=== PATIENT | male | born 1975 | race Caucasian/White ===

== ENCOUNTER 2019-11-08 18:57 | Inpatient (IN) | payer OTHER ==
[~2019-11-08] VITALS: Ht 172.7 cm; Wt 78.5 kg
[~2019-11-08 18:57] MED LIST: AMIT10TA6 PO
[2019-11-08] MEDS ORDERED: ONDANSETRON HCL/PF 4 MG/2 ML VIAL ONE (19:13)
[2019-11-08] MEDS ORDERED: LORAZEPAM INJ 2 MG/ML VIAL ONE ×2 (19:13→20:42)
[2019-11-08 19:23] LABS: BASOPHILS % (AUTO) 0.1 % (0.0-2.0); EOSINOPHILS % (AUTO) 0.1 % (0.0-6.0); HEMATOCRIT 42 % (39-51); HEMOGLOBIN 14.4 g/dL (13.5-17.5); LYMPHOCYTES # (AUTO) 0.9 /CMM (0.8-4.8); LYMPHOCYTES % (AUTO) 5.4 % (20.0-44.0); MEAN CORPUSCULAR HGB CONC 35 g/dl (31.0-36.0); MEAN CORPUSCULAR VOLUME 94 fL (80-96); MONOCYTES # (AUTO) 1.4 /CMM (0.1-1.30); MONOCYTES % (AUTO) 8.2 % (2.0-12.0); NEUTROPHILS # (AUTO) 14.4 /CMM (1.8-8.9); NEUTROPHILS % (AUTO) 86.2 % (43.0-81.0); PLATELET COUNT (AUTO) 86 /CMM (150-450); RED BLOOD CELL COUNT(AUTO) 4.42 MIL/uL (4.5-6.0); WHITE BLOOD COUNT (AUTO) 16.7 K/uL (4.3-11.0)
[2019-11-08] MEDS ORDERED: IV NS 0.9% 1,000 ML BAG IV ONE ×2 (19:30→21:00)
[2019-11-08] MEDS ORDERED: LORAZEPAM INJ 2 MG/ML VIAL IV ONE ×4 (19:30→21:30)
[2019-11-08] MEDS ORDERED: ONDANSETRON HCL/PF 4 MG/2 ML VIAL IVP ONE (19:30)
--- NOTE | 2019-11-08 19:34 | NUR ---
[id number] FRM OUTSIDE [facility], ANXIOUS C/O FEELING UNWELL, NAUSEA. PT AAOX3, VSS. RR EVEN & UNLABORED. DENIES CP, SOB, DIZZINESS, WEAKNESS AT THIS TIME. PT SEEN & EVAL'D BY DR. ENRIQUEZ. MEDICATED ORDERED, PT LIBRADO WELL. PT TO CT VIA [employer]. WILL CONT TO MONITOR.
[2019-11-08 19:36] LABS: SODIUM SERUM 121 mmol/L (136-145)
[2019-11-08 19:37] LABS: BILIRUBIN,DIRECT 0.5 mg/dL (0.0-0.2); BILIRUBIN,TOTAL 1.5 mg/dL (0.2-1.0); CALCIUM, SERUM 9.2 mg/dL (8.5-10.1); CARBON DIOXIDE 32 mmol/L (21-32); CREATININE 0.9 mg/dL (0.6-1.3); GLUCOSE 135 mg/dL (74-106); UREA NITROGEN, BLOOD 18 mg/dL (7-18)
[2019-11-08 19:38] LABS: ACETAMINOPHEN < 2 ug/ml (10-30); ALANINE AMINOTRANSFERASE 168 U/L (12-78); ALBUMIN 3.6 g/dL (3.4-5.0); ALCOHOL, BLOOD < 3 mg/dL (0-0); ALKALINE PHOSPHATASE 81 U/L (46-116); ASPARTATE AMINOTRANSFERASE 126 U/L (15-37); SALICYLATE < 0.2 mg/dL (2.8-20.0); TOTAL PROTEIN, SERUM 6.8 g/dL (6.4-8.2)
[2019-11-08 19:40] LABS: CHLORIDE 80 mmol/L (98-107); POTASSIUM 2.5 mmol/L (3.5-5.1)
[2019-11-08] MEDS ORDERED: POTASSIUM CHLORIDE 20 MEQ TAB.PRT.SR PO ONE ×2 (20:00→20:02)
[2019-11-08 20:08] LABS: APPEARANCE,URINE Clear (CLEAR); BILIRUBIN,URINE Negative (NEGATIVE); BLOOD, URINE Negative Ery/uL (NEGATIVE); COLOR,URINE Yellow (YELLOW); KETONES,URINE Negative (NEGATIVE); LEUKOCYTE ESTERASE ,URINE Negative (NEGATIVE); NITRITE, URINE Negative (NEGATIVE); PH,URINE 6.5 (5.0-8.0); PROTEIN,URINE Negative (NEGATIVE); UGLUCOSE Negative (NEGATIVE)
--- NOTE | 2019-11-08 20:12 | NUR ---
MEDICATED PER ERMD ORDER, PT LIBRADO WELL. PT STABLE, WATCHING TV, NAD NOTED AT THIS TIME. WILL CONT TO MONITOR.
--- NOTE | 2019-11-08 20:25 | NUR ---
Note leia in ED - 11/08/19 at 2240 by BEATRIZ INCREASED DIPRIVAN DRIP TO 50 MCG. PT STILL AGITATED. WILL CONT TO MONITOR.
--- NOTE | 2019-11-08 20:34 | NUR ---
PER ADMIN, TELEPHONE SOLICITOR WAS CALLED AT 2006
[2019-11-08 20:35] LABS: BAND % (MANUAL) 2 % (0.0-5.0); LYMPHOCYTES % (MANUAL) 5 % (16-48); MONOCYTES % (MANUAL) 7 % (0-11.0); NEUTROPHILS % (MANUAL) 86 (42-76)
[2019-11-08 20:36] LABS: CREATINE KINASE, TOTAL 1479 U/L (39-308)
[2019-11-08] MEDS ORDERED: ZOLPIDEM TARTRATE 5 MG TABLET PO PRN (21:00)
[2019-11-08] MEDS ORDERED: ONDANSETRON HCL/PF 4 MG/2 ML VIAL IVP PRN (21:00)
--- NOTE | 2019-11-08 21:10 | NUR ---
PT BECAME HYPERVERBAL, SPEAKING TO HIMSELF, SWEATING PROFUSELY. AAOX2, MEDICATED W/ 2 MG OF ATIVAN IVP PER ERMD ORDER. WILL CONT TO MONITOR FOR POSS ALCOHOL WITHDRAWAL. SITTER AT BS.
[2019-11-08] MEDS ORDERED: KETAMINE HCL (500MG/10ML) 50 MG/ML VIAL ONE (21:36)
--- NOTE | 2019-11-08 21:44 | NUR ---
PT BECOMING MORE RESTLESS, PULLING IV & ACCOUNTS MANAGER WIRES. MEDICATED PER ERMD ORDERS.
[2019-11-08] MEDS ORDERED: PROPOFOL 100 ML ONE (21:57)
[2019-11-08] MEDS ORDERED: SUCCINYLCHOLINE CHLORIDE 20 MG/ML VIAL IV ONE (22:00)
[2019-11-08] MEDS ORDERED: ETOMIDATE 2 MG/ML VIAL IV ONE (22:00)
[2019-11-08] MEDS ORDERED: KETAMINE HCL (500MG/10ML) 50 MG/ML VIAL IV ONE (22:00)
--- NOTE | 2019-11-08 22:00 | NUR ---
LACTIC 2.1
[2019-11-08] MEDS: PROPOFOL 100 ML IV PRN ×4 (22:02→22:20)
[2019-11-08] MEDS ORDERED: MIDAZOLAM 50 MG/10 ML VIAL ONE (22:06)
[2019-11-08] MEDS: MIDAZOLAM HCL 100 MG in IV NS 0.9% 80 ML IV PRN ×2 (22:10→22:40)
--- NOTE | 2019-11-08 22:25 | NUR ---
INCREASED DIPRIVAN DRIP TO 50 MCG. PT STILL AGITATED. WILL CONT TO MONITOR.
--- NOTE | 2019-11-08 22:26 | NUR ---
RT NOTE Pt rec'd on NRB mask @ 15LPM. Pt agitated and showed signs and symptoms of resp distress. Pt orally intubated via ETT sz #7.5 secured @ 24CM at the lipline. colormetric CO2 color changed confirmed. Clear breath sounds heard bilaterally. Xray taken and confirmed placement of tube bedside. Pt placed on [facility] vent on AC mode settings as charted. Alarms are set and audible. Pt sx'd for thick mod amt of pale yellow secretions. Vent plugged into red outlet. Ambu bag bedside. Will continue to monitor closely. Addendum: 11/08/19 at 2230 by RIKKI ALANIS RT Amended: Links added.
--- NOTE | 2019-11-08 22:45 | NUR ---
DECREASED DIPRIVAN TO 40 MCG/KG/MIN. PT FULLY SEDATED. WILL CONT TO MONITOR.
--- NOTE | 2019-11-08 23:07 | NUR ---
REPORT GIVEN TO JARON GLEASON FOR VERO.
--- NOTE | 2019-11-08 23:50 | NUR ---
"TOBACCO CUTTER NOTE | ADMISSION RECEIVED PT FROM ER VIA GURNEY ACCOMPANIED BY 2 RNS AND TRANSFERRED TO BED VIA 2 PERSON ASSIST. PATIENT IS SEDATED; ORALLY INTUBATED WITH ETT 7.5 AND 24CM AT LIPLINE,ON MECHANICAL VENT; SETTINGS PRESCRIBED AC 18 TV 500 FIO2 60% AND PEEP OF5. PATIENT IN NO S/SX OF ACUTE DISTRESS AT THIS TIME. NO SOB NOTED. PATIENT ON TELE MONITORING READING SINUS RHYTHM HR IS @90s. NOTED IV SITE ON R AC #18 AND L AC #20 RECEIVED WITH PROPOFOL 40MCG/KG/MIN AND VERSED AT 2MG/KG/MIN ; BOTH PATENT IN INTACT,NO S/S OF INFECTION OR INFILTRATION. BILATERAL SOFT WRIST RESTRAINTS IN PLACE, ASSESSED PER PROTOCOL. RAMOS CATH IN PLACE, MINIMAL URINE OUTPUT NOTED SAFETY MEASURES HAVE BEEN PROVIDED AND IMPLEMENTED. PATIENT BED ALARM IS ON. HEAD OF BED ELEVATED. BED IS LOCKED, IN LOWEST POSITION AND SIDE RAILS UP. CALL LIGHT WITHIN REACH OF THE PATIENT. WILL CONTINUE TO MONITOR AND REASSESS FOR ANY CHANGES."
[2019-11-09] VITALS (48 sets, daily range): BP systolic 96–154; BP diastolic 63–93
[2019-11-09 00:18] LABS: CALCIUM, SERUM 8.8 mg/dL (8.5-10.1); CREATININE 0.7 mg/dL (0.6-1.3)
[2019-11-09 00:24] LABS: POTASSIUM 2.7 mmol/L (3.5-5.1)
--- NOTE | 2019-11-09 01:00 | NUR ---
RN NOTES RECEIVED A CALL FROM [facility] REPORTED CRITICAL VALUE OF POTASSIUM 2.7 SHARAN JOYA, MADE AWARE AWAITING FOR THE ORDER.
--- NOTE | 2019-11-09 01:14 | NUR ---
RN/ICU-SPOKE TO REPTILE FARMER LIZBETH,TEL. NO [phone]. BY PHONE, WHO CLAIMS THAT HE IS THE PT. ROOM MATE AND DOMESTIC PARTNER AND THAT HE IS THE RESPONSIBLE PERSON FOR PT. PARENTS ARE IN [place] AND THAT THE PARTNER WILL NOTIFY PARENTS IN AM. SAME PERSON WILL GENERAL MILLING SUPERINTENDENT BELONGINGS FROM [facility] TOMORROW.
[2019-11-09] MEDS ORDERED: CEFTRIAXONE 1 G VIAL ONE (01:29)
[2019-11-09] MEDS: CEFTRIAXONE 1 G in IV D5W 50 ML IV SCH (01:33)
[2019-11-09] MEDS: PANTOPRAZOLE 40 MG VIAL IV SCH ×2 (01:33→21:26)
[2019-11-09] MEDS: IV NS 0.9% 1,000 ML IV PRN ×4 (01:34→23:53)
[2019-11-09] MEDS ORDERED: POTASSIUM CL. PREMIX PERIPHER. 200 ML ONE (02:36)
[2019-11-09 05:07] LABS: BILIRUBIN,DIRECT 0.3 mg/dL (0.0-0.2); BILIRUBIN,TOTAL 0.7 mg/dL (0.2-1.0); CALCIUM, SERUM 8.5 mg/dL (8.5-10.1); CREATININE 0.7 mg/dL (0.6-1.3); MAGNESIUM 2.4 mg/dL (1.8-2.4); PHOSPHORUS 4.6 mg/dL (2.5-4.9)
[2019-11-09 05:07] LABS: ABG BASE EXCESS 5.3 mmol/L; ABG OXYGEN SATURATION 97.6 % (92.0-98.5); ABG PCO2 43.3 mmHg (35.0-45.0); ABG PH 7.456 (7.350-7.450); ABG PO2 131.7 mmHg (75.0-100.0); AaDO2 248.5 mmHg; MetHb 0.5 % (0.0-1.5); O2Hb 97.1 % (94.0-97.0); SITE, ABG Right Radial; VENT MODE, BG AC 18 500 60% +5
[2019-11-09 05:14] LABS: BASOPHILS % (AUTO) 0.1 % (0.0-2.0); EOSINOPHILS % (AUTO) 0.7 % (0.0-6.0); HEMATOCRIT 41 % (39-51); LYMPHOCYTES # (AUTO) 2.3 /CMM (0.8-4.8); LYMPHOCYTES % (AUTO) 19.3 % (20.0-44.0); MEAN CORPUSCULAR HGB CONC 34 g/dl (31.0-36.0); MEAN CORPUSCULAR VOLUME 97 fL (80-96); MONOCYTES # (AUTO) 1.4 /CMM (0.1-1.30); MONOCYTES % (AUTO) 11.5 % (2.0-12.0); NEUTROPHILS # (AUTO) 8.1 /CMM (1.8-8.9); NEUTROPHILS % (AUTO) 68.4 % (43.0-81.0); PLATELET COUNT (AUTO) 74 /CMM (150-450); RED BLOOD CELL COUNT(AUTO) 4.27 MIL/uL (4.5-6.0); WHITE BLOOD COUNT (AUTO) 11.8 K/uL (4.3-11.0)
[2019-11-09 05:29] LABS: POTASSIUM 2.8 mmol/L (3.5-5.1)
[2019-11-09 05:48] LABS: NEUTROPHILS % (MANUAL) 80 (42-76)
[2019-11-09 05:49] LABS: LYMPHOCYTES % (MANUAL) 15 % (16-48); MONOCYTES % (MANUAL) 5 % (0-11.0)
--- NOTE | 2019-11-09 07:38 | NUR ---
RN CLOSING NOTE: PATIENT REMAINS IN ROOM. NO SIGNS OF RESPIRATORY DISTRESS. CONTINUE PROPOFOL AT 40MCG/KG/MIN. PT REMAINS SEDATED NO SIGNIFICANT CHANGES IN CONDITION. ETT AND VENT SETTINGS TOLERATED WELL. BSR KEPT IN PLACED PER PROTOCOL. RAMOS CATH DRAINING WELL. WASTED VERSED OF 32.5ML WITNESSED BY JARON ALVAREZ. ENDORSED TO INCOMING AM NURSE TO CONTINUE WITH POC.
[2019-11-09] MEDS ORDERED: PHARMACY ADD 1 AMP MVI TO IVF DAILY ONE BAG XX PRN (08:00)
--- NOTE | 2019-11-09 08:00 | NUR ---
received pt from shift mechanic, s/p OD, sedated on Diprivan at 40mcg, SR, intubated, sat well, NPO, f/c good output, v/s stable, no pain, pt turned and repositioned.
[2019-11-09] MEDS: LORAZEPAM INJ 2 MG/ML VIAL IV PRN ×2 (08:06→16:03)
[2019-11-09] MEDS: POTASSIUM CL. PREMIX PERIPHER. 50 ML IV SCH ×8 (08:11→15:47)
[2019-11-09] MEDS: PROPOFOL 100 ML IV PRN ×5 (08:12→22:33)
[2019-11-09] MEDS: Thiamine 100 MG in IV D5W 50 ML IV SCH (09:28)
[2019-11-09] MEDS: Folic acid 1 MG in IV D5W 50 ML IV SCH (09:29)
[2019-11-09] MEDS: MVI ADULT 10ML VIAL = 1AMP 10 ML in IV NS 0.9% 1,000 ML IV PRN (09:30)
--- NOTE | 2019-11-09 16:20 | NUR ---
pt is resting in the bed, sedated on Diprivan at 60mcg, SR, sat well, good urine output, v/s stable, no pain, pt cleaned, changed and repositioned.
--- NOTE | 2019-11-09 19:20 | NUR ---
RN NOTES RECEIVED PT ORALLY INTUBATED WITH ETT 7.5 AND 24CM AT LIPLINE,ON MECHANICAL VENT; SETTINGS PRESCRIBED AC 18 TV 500 FIO2 60% AND PEEP OF 5. NO S/SX OF ACUTE DISTRESS AT THIS TIME. NO SOB NOTED. PATIENT ON TELE MONITORING SINUS RHYTHM . IV SITE ON R AC #18 AND L AC #18 RUNNING WITH PROPOFOL 60 MCG/KG/MIN AND IVF NS @ 125 ML/HR PATENT IN INTACT,NO S/S OF INFECTION OR INFILTRATION. BILATERAL SOFT WRIST RESTRAINTS KEPT IN PLACE, RAMOS CATH DRAINED VIA GRAVITY BED IS LOCKED, IN LOWEST POSITION AND SIDE RAILS UP. BED ALARM ON. WILL CONTINUE TO MONITOR.
[2019-11-09] MEDS: AMITRIPTYLINE HCL 10 MG TABLET PO SCH (21:30)
[2019-11-10] VITALS (42 sets, daily range): BP systolic 107–171; BP diastolic 55–94
[2019-11-10] MEDS ORDERED: CEFTRIAXONE 1 G VIAL ONE (02:34)
[2019-11-10] MEDS: CEFTRIAXONE 1 G in IV D5W 50 ML IV SCH (02:35)
[2019-11-10] MEDS: LORAZEPAM INJ 2 MG/ML VIAL IV PRN ×2 (04:41→10:54)
[2019-11-10 05:23] LABS: BASOPHILS % (AUTO) 0.3 % (0.0-2.0); EOSINOPHILS % (AUTO) 1.5 % (0.0-6.0); HEMATOCRIT 37 % (39-51); HEMOGLOBIN 12.9 g/dL (13.5-17.5); LYMPHOCYTES # (AUTO) 1.8 /CMM (0.8-4.8); LYMPHOCYTES % (AUTO) 18.7 % (20.0-44.0); MEAN CORPUSCULAR HGB CONC 35 g/dl (31.0-36.0); MEAN CORPUSCULAR VOLUME 98 fL (80-96); MONOCYTES # (AUTO) 1.4 /CMM (0.1-1.30); MONOCYTES % (AUTO) 14.1 % (2.0-12.0); NEUTROPHILS # (AUTO) 6.3 /CMM (1.8-8.9); NEUTROPHILS % (AUTO) 65.4 % (43.0-81.0); PLATELET COUNT (AUTO) 85 /CMM (150-450); RED BLOOD CELL COUNT(AUTO) 3.79 MIL/uL (4.5-6.0); WHITE BLOOD COUNT (AUTO) 9.7 K/uL (4.3-11.0)
--- NOTE | 2019-11-10 05:30 | NUR ---
RN NOTES RECEIVE A CALL [facility] CREATININE KINASE 17.1 DNP MADE AWARE.
[2019-11-10 05:36] LABS: CALCIUM, SERUM 7.7 mg/dL (8.5-10.1); CREATININE 0.6 mg/dL (0.6-1.3); PHOSPHORUS 3.1 mg/dL (2.5-4.9); POTASSIUM 3.5 mmol/L (3.5-5.1)
[2019-11-10 06:19] LABS: LYMPHOCYTES % (MANUAL) 16 % (16-48); NEUTROPHILS % (MANUAL) 75 (42-76)
[2019-11-10 06:20] LABS: MONOCYTES % (MANUAL) 9 % (0-11.0)
--- NOTE | 2019-11-10 07:13 | NUR ---
RN NOTES PATIENT REMAINED SEDATED WITH DIPRIVAN ATIVAN GIVEN PRN. TOLERATED WELL. AFEBRILE. ETT AND VENT SETTING TOLERATED WELL. VSS. IV SITE ON RAC AND LAC INTACT AND PATENT PROPOFOL TITRATED ORDERED PROTOCOL AND IVF ONGOING ORDERED. WILFRID. SOFT WRIST RESTRAINT KEPT IN PLACED. F/C DRAINED WITH LIGHT GREENISH COLOR WTIH GOOD URINE OUTPUT. PATIENT AZALIA HAVE WEANING TRIAL TODAY ENDORSED CONTINUITY OF CARE TO AM NURSE.
[2019-11-10] MEDS: PROPOFOL 100 ML IV PRN ×2 (08:17→11:23)
--- NOTE | 2019-11-10 09:04 | NUR ---
received pt form night order selector, sedated on Diprivan at 60mcg, SR, intubated, sat well, NPO, f/c good output, v/s stable, no pain, pt turned and repositioned.
--- NOTE | 2019-11-10 09:10 | NUR ---
RT NOTE PER DR. GOODMAN WEANING HELD UNTIL COVID RESULTS COME BACK
[2019-11-10] MEDS: MVI ADULT 10ML VIAL = 1AMP 10 ML in IV NS 0.9% 1,000 ML IV PRN (09:35)
[2019-11-10] MEDS: Folic acid 1 MG in IV D5W 50 ML IV SCH (09:35)
[2019-11-10] MEDS: Thiamine 100 MG in IV D5W 50 ML IV SCH (09:35)
[2019-11-10] MEDS ORDERED: DC PROPOFOL WHEN EXTUBATED XX PRN (10:00)
--- NOTE | 2019-11-10 12:29 | NUR ---
PATIENT EXTUBATED PER DOCTOR PELEG. PATIENT TOLERATED WELL. PATIENT PLACED ON 3L OXYGEN VIA NASAL CANNULA, SATURATING WELL AT 98-100%, BREATHING EVEN AND UNLABORED. NO ACUTE DISTRESS NOTED.
--- NOTE | 2019-11-10 18:11 | NUR ---
PATIENT IN BED. NO ACUTE DISTRESS NOTED. PATIENT ALERT & ORIENTED X2-3, WITH PERIODS OF CONFUSION. PATIENT ON 3L OXYGEN VIA NASAL CANNULA, SATURATING WELL AT 97%. PATIENT ON INSPECTOR FABRIC, SINUS RHYTHM NOTED WITH HEART RATE IN 70S. PATIENT RIGHT ANTECUBITAL AND LEFT ANTECUBITAL IV ACCESS INTACT, PATENT, FLUSHED WELL. PATIENT RAMOS CATHETER IN PLACE, INTACT, DRAINING TO GRAVITY. PATIENT SAFETY MAINTAINED. CALL LIGHT WITHIN REACH. WILL ENDORSE PLAN OF CARE TO ONCOMING NURSE FOR CONTINUITY OF CARE.
--- NOTE | 2019-11-10 19:45 | NUR ---
ICU/STEM SIZER REPORT RECEIVED FROM THE TO DAY NURSE. SEE FLOWSHEET FOR ASSESSMENT, SKIN ISSUES ARE ADDRESSED ON FLOWSHEET ALONG WITH INTERVENTION TO EACH. PT APPEARS TO BE LETHARGIC. PT IS ON 3 LITERS N/C WITH SATURATION AT 97S%. WILL MONITOR THIS PT AND HIS SATURATION. PT TURNS SELF AND REPOSITIONS SELF WELL FOR COMFORT AND CARE. NO ACUTE DISTRESS SEEN AT THIS TIME, WILL CONTINUE TO MONITOR THIS PT.
--- NOTE | 2019-11-10 20:03 | NUR ---
RT NOTE FOUND PT ALERT AND ORIENTED ON RA SPO2 97-98% HR 73/88 RR 20/22. NO S/S OF RESPIRATORY DISTRESS. WILL CONTINUE TO MONITOR T/O SHIFT.
[2019-11-10] MEDS: PANTOPRAZOLE 40 MG VIAL IV SCH (21:26)
[2019-11-10] MEDS: AMITRIPTYLINE HCL 10 MG TABLET PO SCH (21:27)
--- NOTE | 2019-11-10 22:10 | NUR ---
ICU/JAVASCRIPT PROGRAMMER PT REFUSED PM CARE. PT REMAINS WITH SATURATION AT 97%. PT TURNS SELF AND REPOSITIONS SELF FOR COMFORT AND CARE. WILL CONTINUE TO MONITOR THIS PT
[2019-11-11] VITALS (8 sets, daily range): BP systolic 132–165; BP diastolic 81–100
[2019-11-11] MEDS: CEFTRIAXONE 1 G in IV D5W 50 ML IV SCH (01:43)
--- NOTE | 2019-11-11 03:00 | NUR ---
ICU/FOREST ECONOMIST PT REFUSED AM CARE. PT REMAINS WITH SATURATION AT 97%. PT TURNS SELF AND REPOSITIONS SELF FOR COMFORT AND CARE. WILL CONTINUE TO MONITOR THIS PT
[2019-11-11 05:10] LABS: BASOPHILS % (AUTO) 0.3 % (0.0-2.0); EOSINOPHILS % (AUTO) 0.4 % (0.0-6.0); HEMATOCRIT 43 % (39-51); HEMOGLOBIN 14.6 g/dL (13.5-17.5); LYMPHOCYTES # (AUTO) 1.2 /CMM (0.8-4.8); LYMPHOCYTES % (AUTO) 15.3 % (20.0-44.0); MEAN CORPUSCULAR HGB CONC 34 g/dl (31.0-36.0); MEAN CORPUSCULAR VOLUME 98 fL (80-96); MONOCYTES # (AUTO) 1.1 /CMM (0.1-1.30); MONOCYTES % (AUTO) 14.6 % (2.0-12.0); NEUTROPHILS # (AUTO) 5.3 /CMM (1.8-8.9); NEUTROPHILS % (AUTO) 69.4 % (43.0-81.0); PLATELET COUNT (AUTO) 138 /CMM (150-450); RED BLOOD CELL COUNT(AUTO) 4.43 MIL/uL (4.5-6.0); WHITE BLOOD COUNT (AUTO) 7.6 K/uL (4.3-11.0)
[2019-11-11 05:28] LABS: CALCIUM, SERUM 8.3 mg/dL (8.5-10.1); CREATININE 0.7 mg/dL (0.6-1.3); MAGNESIUM 2.1 mg/dL (1.8-2.4); PHOSPHORUS 2.5 mg/dL (2.5-4.9); POTASSIUM 3.2 mmol/L (3.5-5.1)
--- NOTE | 2019-11-11 05:30 | NUR ---
ICU/VIRTUAL CLASSROOM MANAGER AM LABS WERE DONE, AWAIT FOR ANY RESULTS.
[2019-11-11] MEDS ORDERED: POTASSIUM CHLORIDE 20 MEQ TAB.PRT.SR PO ONE (08:00)
[2019-11-11] MEDS: Thiamine 100 MG in IV D5W 50 ML IV SCH (08:00)
[2019-11-11] MEDS: Folic acid 1 MG in IV D5W 50 ML IV SCH (08:00)
--- NOTE | 2019-11-11 08:14 | NUR ---
PT WANTS TO LEAVE AMA. AMA FORMED SIGNED BY PATIENT AND BY DR. SÁNHCEZ. DR. YOUSIF ORDERED 40MEQ OF POTASSIUM PRIOR TO PATIENT LEAVING AMA. RIGHT AC IV SITE AND LEFT AC SITE REMOVED WITHOUT DIFFICULTY, BOTH CATH TIPS INTACT. RAMOS CATHETER REMOVED WITHOUT DIFFICULTY. DR. CHRISTENSEN IN ICU, NOTIFIED. PT IS CURRENTLY WAITING TILL HIS PHONE CHARGES A LITTLE SO HE CAN CALLED AN UBER OR LYFT. PT APPEARS OX4, A LITTLE SHAKY BUT STEADY ON FEET.
[2019-11-11] MEDS ORDERED: POTASSIUM CHLORIDE 20 MEQ TAB.PRT.SR PO STA (08:36)
--- NOTE | 2019-11-11 08:59 | NUR ---
PT'S HOME MED ESCITALOPRAM 5MG TABS IS IN PHARMACY. PT REFUSED TO HAVE MED SENT FROM PHARMACY FOR HIM TO TAKE HOME. PT STATES THE MED GIVES HIM SIDE EFFECTS. RN WILL NOTIFIED PHARMACY. Addendum: 11/11/19 at 0914 by PAN CAMARENA RN RN RECEIVED MEDICATION FROM PHARMACY AND HANDED IT TO PATIENT PATIENT WAS LEAVING.
--- NOTE | 2019-11-11 09:14 | NUR ---
PT LEFT AMA AT THIS TIME. PT CALLED AN UBER, RN WALKED PT TO LOBBY.
--- NOTE | 2019-11-11 09:17 | NUR ---
WHEN PATIENT LEFT AMA PT TOOK ALL PERSONAL BELONGINGS WITH HIM, INCLUDING CLOTHES, SHOES, WALLET AND CELL PHONE AND ALL OVER PERSONAL BELONGINGS.
== END 2019-11-11 09:20 | disposition left against medical advice (07) | DRG 133 ==
LOC: ER 19:02 → TELE 21:27 → ICU 22:08
PROVIDERS: ADMIT Nurse Practitioner Acute Care; ATTEND Family Medicine
PROC: 0BH17EZ Insertion of Endotracheal Airway into Trachea, Via Natural or Artificial Opening (ICD-10-PCS; principal; 2019-11-08)
PROC: 5A1945Z Respiratory Ventilation, 24-96 Consecutive Hours (ICD-10-PCS; principal; 2019-11-08)
DX: J96.00 Acute respiratory failure, unspecified whether with hypoxia or hypercapnia (principal); F10.229 Alcohol dependence with intoxication, unspecified; E87.6 Hypokalemia; E87.1 Hypo-osmolality and hyponatremia; E86.0 Dehydration; F10.239 Alcohol dependence with withdrawal, unspecified; R56.9 Unspecified convulsions; M62.82 Rhabdomyolysis; Z96.641 Presence of right artificial hip joint; Z79.899 Other long term (current) drug therapy; G92 Toxic encephalopathy; F32.9 Major depressive disorder, single episode, unspecified; J98.11 Atelectasis; D69.6 Thrombocytopenia, unspecified; Z86.73 Personal history of transient ischemic attack (TIA), and cerebral infarction without residual deficits; E87.2 Acidosis; E86.1 Hypovolemia; Y90.0 Blood alcohol level of less than 20 mg/100 ml; E86.9 Volume depletion, unspecified
CPT/HCPCS: 31720; 36415; 36600; 70450-TC; 71045-TC; 80048-TC; 80061-TC; 80076-TC; 80305; 81000-TC; 82550-TC; 82553; 82803-TC; 83605-TC; 83690-TC; 83735-TC; 83935-TC; 84100-TC; 85025-TC; 87081-TC; 94002-TC; 94003-TC; 94799-TC; 99082-TC; A4216; C9113; G0378; G0480; J0330; J0696; J2060; J2250; J2405; J3411; J3480; J3490; J7030; J7060

== ENCOUNTER 2019-11-13 05:11 | Emergency (ER) | payer OTHER ==
[~2019-11-13] VITALS: Ht 172.7 cm; Wt 71.2 kg
[2019-11-13 05:20] VITALS: BP 138/92
--- NOTE | 2019-11-13 05:38 | NUR ---
PATIENT CAME TO ER BED 11 C/O ANXIETY ATTACK SINCE 1.5xHR SCREW MACHINE OPERATOR. PATIENT DENIES ANY PAIN. DENIES ANY STIMULANTS, ALCOHOL, OR DRUG USE. PATIENT IS AAOX4. NO SOB. BREATHING EVENLY AND UNLABORED ON ROOM AIR. CONNECTED TO THE MONITOR.
--- NOTE | 2019-11-13 05:48 | NUR ---
XRAY AT BEDSIDE.
[2019-11-13] MEDS ORDERED: LORAZEPAM INJ 2 MG/ML VIAL ONE (06:10)
--- NOTE | 2019-11-13 06:11 | NUR ---
PATIENT ELOPED FROM ER. LEFT BEFORE SIGNING AMA.
[2019-11-13] MEDS ORDERED: LORAZEPAM INJ 2 MG/ML VIAL IV ONE (06:30)
== END 2019-11-13 06:29 | disposition left against medical advice (07) ==
LOC: ER 05:12
DX: F41.9 Anxiety disorder, unspecified (principal); G62.9 Polyneuropathy, unspecified; F17.200 Nicotine dependence, unspecified, uncomplicated; Z98.890 Other specified postprocedural states; Z79.899 Other long term (current) drug therapy
CPT/HCPCS: 71045-TC; J2060

== ENCOUNTER 2020-02-18 07:43 | Emergency (ER) | payer OTHER ==
[~2020-02-18] VITALS: Ht 172.7 cm; Wt 71.2 kg
--- NOTE | 2020-02-18 07:48 | NUR ---
JEAN [address], PER PATIENT, LAST ALCOHOL YESTERDAY. C/O WEAKNESS AND TREMORS. TO ER BED 13, HOOKED TO MONITOR, CHANGED TO [facility], WARM BLANKET PROVIDED, PATIENT AAO x 3, BREATHING EVEN AND UNLABORED. AWAITING MD HOPPER.
--- NOTE | 2020-02-18 07:51 | NUR ---
DR BEAN AT BEDSIDE
[2020-02-18] MEDS ORDERED: LORAZEPAM 1 MG TABLET PO ONE (08:00)
[2020-02-18] MEDS ORDERED: LORAZEPAM 1 MG TABLET ONE (08:03)
--- NOTE | 2020-02-18 08:09 | NUR ---
Sarahi dupree in ED - 02/18/20 at 0845 by DANY PATIENT NOT ABLE TO PROVIDE URINE SAMPLE AT THIS TIME. MD PABLO
--- NOTE | 2020-02-18 11:40 | NUR ---
CALLED PARTNER LIZBETH. LEFT MESSAGE. PT READY TO BE DISCHARGE.
--- NOTE | 2020-02-18 12:10 | NUR ---
PARTNER MADE AWARE. STATES UNABLE TO WEB WEAVER PATIENT. PT AGREE TO GO HOME IF PROVIDED W/ TRANSPORTATION.
--- NOTE | 2020-02-18 14:22 | NUR ---
Patient given written and verbal discharge instructions. Patient verbalizes understanding of instructions. Patient is ambulatory with steady gait. Refuses offer of [facility] placement. Patient given list of available shelters in surrounding area. In proper clothing upon discharge, all belongings returned. Name band removed. Taxi voucher provided.
[2020-02-18 14:25] VITALS: BP 122/60
== END 2020-02-18 14:26 | disposition home or self-care (01) ==
LOC: ER 07:48
DX: F10.239 Alcohol dependence with withdrawal, unspecified (principal); Y90.9 Presence of alcohol in blood, level not specified; Z98.890 Other specified postprocedural states; Z79.899 Other long term (current) drug therapy

== ENCOUNTER 2020-10-24 12:17 | Emergency (ER) | payer OTHER ==
[~2020-10-24] VITALS: Ht 175.3 cm; Wt 72.6 kg
--- NOTE | 2020-10-24 12:48 | NUR ---
[id number] FRM OUTSIDE OF HIS APARTMENT, FOREHEAD LACERATION S/P GLF. +ETOH. PATIENT ASSISTED TO BED, NOTED TO HAVE UNSTEADY BALANCE WHEN HE STOOD UP. PATIENT A/OX3, VERBALLY RESPONSIVE. KEPT COMFORTABLE IN BED. LAC ON FOREHEAD HAS MINIMAL BLEEDING.
--- NOTE | 2020-10-24 12:55 | NUR ---
PATIENT TAKEN TO CT.
[2020-10-24] MEDS ORDERED: LIDOCAINE HCL/MPF 1% 30 ML VIAL IJ ONE (12:56)
[2020-10-24] MEDS ORDERED: TDAP [DIPH/PERTUSSIS/TET] 0.5 ML VIAL IM ONE (13:22)
[2020-10-24] MEDS: TDAP [DIPH/PERTUSSIS/TET] 0.5 ML VIAL IM ONE (13:28)
[2020-10-24] MEDS: BACITRACIN ZINC OINT PACKET 1 EA PACKET TP ONE (13:50)
[2020-10-24] MEDS: LIDOCAINE 1% INJ 50 ML MDV IJ ONE (13:50)
--- NOTE | 2020-10-24 15:00 | NUR ---
LAC REPAIRED BY DR. PURDY.
--- NOTE | 2020-10-24 16:00 | NUR ---
PATIENT A/OX4, AMBULATORY WITH STEADY GAIT. NO DISTRESS NOTED. NEEDS ATTENDED. GAVE FOOD.
--- NOTE | 2020-10-24 16:52 | NUR ---
Patient discharged to home in stable condition. Written and verbal after care instructions given. Patient verbalizes understanding of instruction.
[2020-10-24 16:53] VITALS: BP 130/76
== END 2020-10-24 16:54 | disposition home or self-care (01) ==
LOC: ER 12:19
DX: S01.81XA Laceration without foreign body of other part of head, initial encounter (principal); S40.812A Abrasion of left upper arm, initial encounter; S40.811A Abrasion of right upper arm, initial encounter; S80.812A Abrasion, left lower leg, initial encounter; S80.811A Abrasion, right lower leg, initial encounter; F10.129 Alcohol abuse with intoxication, unspecified; G62.9 Polyneuropathy, unspecified; Z98.890 Other specified postprocedural states; Z79.899 Other long term (current) drug therapy; W18.39XA Other fall on same level, initial encounter; Y93.89 Activity, other specified; Y92.89 Other specified places as the place of occurrence of the external cause; Y99.8 Other external cause status; Y90.9 Presence of alcohol in blood, level not specified
CPT/HCPCS: 12013; 70450; 71045; 72125; 90471; 90715; 99285; A6403; J3490; J7030